=== PATIENT | male | born 1965 | race African-American/Black ===

== ENCOUNTER 2017-10-13 18:17 | Emergency (ER) | payer SELFPAY ==
[~2017-10-13] VITALS: Ht 180.3 cm; Wt 95.0 kg
[2017-10-13 18:25] VITALS: TEMP 98.1; O2SAT 96
[2017-10-13 18:27] VITALS: BP 178/86; PULSE 67; RESP 18; TEMP 98.8; O2SAT 100
[2017-10-13 19:23] LABS: BACTERIA, URINE FEW /hpf; BILIRUBIN, URINE NEG (NEG); BLOOD, URINE NEG (NEG); GLUCOSE,URINE NEG (NEG); KETONE, URINE NEG (NEG); NITRITE,URINE NEG (NEG); PH, URINE 6.5 (5.0-8.5); SQUAMOUS EPITHELIAL CELL URINE <1 /hpf (0-5); URINE COLOR YELLOW (YELLW/STRAW); URINE LEUKOCYTE ESTERASE MOD (NEG)
[2017-10-13] MEDS ORDERED: SODIUM CHLORIDE 0.9% FLUSH 10 ML FLUSH IVF PRN (20:30)
[2017-10-13] MEDS ORDERED: DOXYCYCLINE HYCLATE 100 MG CAP PO ONE (20:30)
[2017-10-13] MEDS ORDERED: NITROFURANTOIN MONOHYD MACROCR 100 MG CAP PO ONE (20:30)
[2017-10-13] MEDS ORDERED: cefTRIAXone 250 MG VIAL IM ONE (20:30)
[2017-10-13] MEDS ORDERED: DOXY100C PO (20:41)
[2017-10-13] MEDS ORDERED: MACR100C2 PO (20:41)
--- NOTE | 2017-10-13 20:41 | PD ---
HPI Chief Complaint: Complaint Time Seen by Provider: 20:30 Travel History International Travel<30 days: No Contact w/Intl Traveler<30days: No Traveled to known affect area: No History of Present Illness HPI 52-year-old male came to the emergency room with complaints of frequency in urination, burning and some discharge from the penile tip. Patient says these have been going on for past 1 week. He has had unprotected sex. He is unsure whether his partners are tested positive. He seems anxious and uncomfortable. A UA was sent from triage. No history of fever or chills. No history of hematuria. FOR[facility], [facility] Past Medical History Narrative Medical List of his past medical, surgical, social and family history is reviewed from the nursing note Social History Tobacco Use: Yes Allergies-Medications (Allergen,Severity, Reaction): Coded Allergies: No Known Allergies (Verified Allergy, Unknown, 10/13/17) Comments No known drug allergies. Reported Meds & Prescriptions Reported Meds & Active Scripts Active Macrobid (Nitrofurantoin Monoh/Nitrofur Macro) 100 Mg Cap 100 Mg PO BID 10 Days Doxycycline Hyclate 100 Mg Cap 100 Mg PO BID 7 Days Narrative Medication List of his home medications reviewed from the nursing note. Review of Systems Except as stated in HPI: all other systems reviewed are Neg Genitourinary: Positive: Urgency, Frequency, Dysuria Physical Exam Narrative GENERAL: Awake, alert, anxious, mild distress SKIN: Focused skin assessment warm/dry. HEAD: Atraumatic. Normocephalic. EYES: Pupils equal and round. No scleral icterus. No injection or drainage. ENT: No nasal bleeding or discharge. Mucous membranes pink and moist. NECK: Trachea midline. No JVD. CARDIOVASCULAR: Regular rate and rhythm. No murmur appreciated. RESPIRATORY: No accessory muscle use. Clear to auscultation. Breath sounds equal bilaterally. GASTROINTESTINAL: Abdomen soft, non-tender, nondistended. Hepatic and splenic margins not palpable. MUSCULOSKELETAL: No obvious deformities. No clubbing. No cyanosis. No edema. NEUROLOGICAL: Awake and alert. No obvious cranial nerve deficits. Motor grossly within normal limits. Normal speech. PSYCHIATRIC: Appropriate mood and affect; insight and judgment normal. Data Data Last Documented VS Vital Signs Date Time Temp Pulse Resp B/P (MAP) Pulse Ox O2 Delivery O2 Flow Rate FiO2 10/13/17 21:14 10/13/17 18:27 98.8 67 18 100 Room Air Orders Orders Urinalysis - C+S If Indicated (10/13/17 18:35) Urine Culture (10/13/17 18:39) Gc And Chlamydia Pcr (10/13/17 20:30) Sodium Chloride 0.9% Flush (Ns Flush) (10/13/17 20:30) Doxycycline (Vibramycin) (10/13/17 20:30) Nitrofurantoin Monohyd Macrocr (Macrobid (10/13/17 20:30) Ceftriaxone Inj (Rocephin Inj) (10/13/17 20:30) Ed Discharge Order (10/13/17 20:41) Labs Laboratory Tests Test 10/13/17 18:39 Urine Color YELLOW Urine Turbidity CLEAR Urine pH 6.5 Urine Specific Rhododendron 1.021 Urine Protein TRACE mg/dL Urine Glucose (UA) NEG mg/dL Urine Ketones NEG mg/dL Urine Occult Blood NEG Urine Nitrite NEG Urine Bilirubin NEG Urine Urobilinogen 2.0 MG/DL Urine Leukocyte Esterase MOD Urine WBC 65 /hpf Urine Squamous Epithelial Cells <1 /hpf Urine Bacteria FEW /hpf Microscopic Urinalysis Comment CULTURE INDICATED Chlamydia trachomatis DNA (PCR) NOT DETECTED Neisseria gonorrhoeae DNA (PCR) NOT DETECTED MDM Medical Decision Making Medical Screen Exam Complete: Yes Emergency Medical Condition: Yes Medical Record Reviewed: Yes Differential Diagnosis Urethritis, STD, cystitis Narrative Course 8:45 PM patient was given p.o. doxycycline, p.o. Macrobid and IM Rocephin to cover for possible UTI as well as STD. Urine has been sent from our GC and chlamydia. Patient will be called back if it test positive so that he can inform his partners to be treated. Procedures EKG Prior to Arrival: No Diagnosis Primary Impression: Urethritis Additional Impression: UTI (urinary tract infection) Qualified Codes: N39.0 - Urinary tract infection, site not specified Referrals: Primary Care Physician Additional Instructions: Take the medication as per the prescription direction. If your test results are positive we will call you so that you can contact your partners since they would require treatment as well. Use condom for next 3 weeks. Finish the antibiotic as per the prescription direction. Med/Other Pt SpecificInfo: Prescription(s) given Scripts Nitrofurantoin Monohydrate Macrocrystals (Macrobid) 100 Mg Cap 100 MG PO BID for Infection for 10 Days, #20 CAP 0 Refills Prov: Elidia Payan MD 10/13/17 Doxycycline Hyclate (Doxycycline Hyclate) 100 Mg Cap 100 MG PO BID for Infection for 7 Days, #14 CAP 0 Refills Prov: Elidia Payan MD 10/13/17 Disposition: 01 DISCHARGE HOME Condition: Stable Elidia Payan MD Oct 13, 2017 20:41
== END 2017-10-13 21:15 | disposition home or self-care (01) ==
LOC: NEPD 18:17
DX: N34.2 Other urethritis (principal); N39.0 Urinary tract infection, site not specified; Z72.0 Tobacco use
CPT/HCPCS: 81001; 87086; 87491; 87591; 96372; 99283; J0696